=== PATIENT | female | born 1970 | race Native Hawaiian/Other Pacific Islander ===

== ENCOUNTER 2016-10-12 11:24 | Outpatient (CLI) | payer BC ==
--- NOTE | 2016-10-12 14:51 | Mammography Report ---
Bilateral mammogram: No previous studies are available. CAD study utilized. Findings: Predominance and interstitial bilaterally. Ill-defined 1 cm asymmetry posterior midline left breast. No microcalcification. Benign axillary nodes. Impression: Focal asymmetry left breast. Comparison with previous studies is recommended. If previous studies are not available spot mag and sonographic examination advised. BI-RADS CATEGORY: 0 = Needs additional imaging evaluation ACR BI-RADS MAMMOGRAPHIC CODES: 0 = Needs additional imaging evaluation; 1 = Negative; 2 = Benign; 3 = Probably benign; 4 = Suspicious; 5 = Malignant; 6 = Known biopsy-proven malignancy COMMENT: 1. Dense breast tissue, i.e., adenosis, fibrocystic changes, etc., may obscure an underlying neoplasm. 2. Approximately 10% of cancers are not detected with mammography. 3. A negative mammography report should not delay biopsy if a clinically suspicious mass is present. COMMENT: Patient follow-up letters are [facility].
== END 2016-10-12 11:25 | disposition home or self-care (01) ==
LOC: MAMMO 11:24
PROVIDERS: ATTEND Obstetrics & Gynecology
DX: Z12.31 Encounter for screening mammogram for malignant neoplasm of breast (principal)
CPT/HCPCS: 77067; G0202

== ENCOUNTER 2016-12-02 10:48 | Outpatient (CLI) | payer BC ==
--- NOTE | 2016-12-02 11:54 | Ultrasound Report ---
Spot compression magnification of circumscribed density outer left breast followed by sonographic examination: Findings: There is partially effacement noted of the density on spot magnification view, however, though no distinct mass is identified, asymmetric density persists. No microcalcification. Sonographic examination reveals complex cyst measuring 0.4 x 0.4 x 0.4 cm at 12:00 position 6 cm from nipple and a second complex cyst measuring 0.7 x 0.4 x 0.9 cm 2:00 position 4 cm from nipple. Impression: Complex cysts appear to be corresponding to the density seen on mammogram. Probably benign. Six-month followup with mammogram and sonogram recommended. BI-RADS CATEGORY: 3 = Probably benign ACR BI-RADS MAMMOGRAPHIC CODES: 0 = Needs additional imaging evaluation; 1 = Negative; 2 = Benign; 3 = Probably benign; 4 = Suspicious; 5 = Malignant; 6 = Known biopsy-proven malignancy COMMENT: 1. Dense breast tissue, i.e., adenosis, fibrocystic changes, etc., may obscure an underlying neoplasm. 2. Approximately 10% of cancers are not detected with mammography. 3. A negative mammography report should not delay biopsy if a clinically suspicious mass is present.
== END 2016-12-02 10:49 | disposition home or self-care (01) ==
LOC: MAMMO 10:48
PROVIDERS: ATTEND Obstetrics & Gynecology
DX: N60.02 Solitary cyst of left breast (principal)
CPT/HCPCS: 76642; G0206

== ENCOUNTER 2018-04-11 06:14 | Day surgery (SDC) | payer BC ==
[~2018-04-11 06:14] MED LIST: LACTATED RINGERS 1,000 ML IV SCH; NACL 0.9% 1000 ML 1,000 ML IV SCH; NEURONTIN PO SCH; VANCOMYCIN/NS 1 GM/250 ML 1 GM/250 ML BAG IV NR; VERSED IV NR
[2018-04-11] MEDS ORDERED: NACL BACTERIOSTATIC INFILTRATI ONE (06:55)
[2018-04-11] MEDS ORDERED: DIPRIVAN 10 MG/ML IV ONE (07:11)
[2018-04-11] MEDS ORDERED: DECADRON ONE (07:12)
[2018-04-11] MEDS ORDERED: XYLOCAINE MPF 2% ONE (07:12)
[2018-04-11] MEDS ORDERED: DILAUDID ONE (07:12)
[2018-04-11] MEDS ORDERED: ZOFRAN ONE ×2 (07:12→09:49)
[2018-04-11] MEDS ORDERED: MARCAINE 0.5% INFILTRATI ONE ×2 (07:31→08:22)
[2018-04-11] MEDS ORDERED: XYLOCAINE 1%/ EPI 1:100,000 INFILTRATI ONE (07:31)
[2018-04-11] MEDS ORDERED: DILAUDID IV PRN (07:40)
--- NOTE | 2018-04-11 07:40 | Anesthesia Consultation ---
Anesthesia Consult and Med Hx Date of service: 04/11/18 - Airway Anesthetic Teeth Evaluation: Good ROM Head & Neck: Adequate Mental/Hyoid Distance: Adequate Mallampati Class: Class III Intubation Access Assessment: Possibly Difficult - Pulmonary Exam CTA: Yes - Cardiac Exam Cardiac Exam: RRR - Pre-Operative Health Status ASA Pre-Surgery Classification: ASA2 Proposed Anesthetic Plan: General, MAC - Pulmonary Hx Smoking: No Hx Asthma: No Hx Respiratory Symptoms: No Hx Sleep Apnea: No (CELY PRE SCREEN NEGATIVE) - Cardiovascular System Hx Hypertension: No Hx Heart Attack/AMI: No Hx Percutaneous Transluminal Coronary Angioplasty (PTCA): No - Central Nervous System Hx Seizures: No CVA: No - Gastrointestinal Hx Gastroesophageal Reflux Disease: No - Endocrine Hx Renal Disease: No Hx Liver Disease: No Hx Insulin Dependent Diabetes: No Hx Non-Insulin Dependent Diabetes: No Hx Thyroid Disease: No - Other Systems Hx Obesity: Yes - Additional Comments Anesthesia Medical History Comments: No hx anesthetic complications.
--- NOTE | 2018-04-11 07:40 | Anesthesia Day of Surgery ---
Anesthesia Day of Surgery - Day of Surgery Patient Examined: Yes Patient H&P Reviewed: Yes Patient is NPO: Yes
[2018-04-11] MEDS ORDERED: XYLOCAINE 1% 20 mL ONE (08:11)
[2018-04-11] MEDS ORDERED: XYLOCAINE 1% 20 mL INFILTRATI ONE (08:22)
[2018-04-11] MEDS ORDERED: NACL 0.9% IR ONE (08:23)
--- NOTE | 2018-04-11 09:04 | Short Stay Summary ---
Short Stay Documentation Date of service: 04/11/18 - History H&P: obtained from office - Allergies and Medications Current Medications: Allergies Penicillins Allergy (Unverified 10/12/16 11:25) Hives,SWELLING Sulfa (Sulfonamide Antibiotics) Allergy (Unverified 04/03/18 14:43) Anaphylaxis Home Medications Medication Instructions Recorded Confirmed Last Taken Type RX: No Known Home Medications [No 04/03/18 04/03/18 Unknown History Reported Home Medications] Active Medications Gabapentin (Neurontin) 600 mg PO PREOP SHEREEN Last Admin: 04/11/18 07:00 Dose: 600 mg Documented by: Hydromorphone HCl (Dilaudid) 0.5 mg IV Q10MIN PRN PRN Reason: Pain , Severe (7-10) Stop: 04/11/18 20:00 Sodium Chloride (Nacl 0.9% 1000 Ml) 1,000 mls @ 75 mls/hr IV DIRECT SHEREEN Vancomycin HCl (Vancomycin/Ns 1 Gm/250 Ml) 1 gm in 250 mls @ 166.667 mls/hr IV PREOP NR; Protocol Stop: 04/11/18 23:59 Last Admin: 04/11/18 07:40 Dose: 166.667 mls/hr Documented by: Lactated Ringer's (Lactated Ringers) 1,000 mls @ 100 mls/hr IV DIRECT SHEREEN Last Admin: 04/11/18 07:10 Dose: 100 mls/hr Documented by: Midazolam HCl (Versed) 2 mg IV PREOP NR Stop: 04/11/18 21:59 Last Admin: 04/11/18 07:20 Dose: 2 mg Documented by: - Physical exam General appearance: no acute distress Integumentary: no rash Lungs: Normal air movement Neurological: Normal speech - Brief post op/procedure progress note Date of procedure: 04/11/18 (Dictation:[id number]) Pre-op diagnosis: Left back mass Post-op diagnosis: same Procedure: Back Mass Excision Anesthesia: GETA Findings: [id number] lipomatous mass Surgeon: NIRAV SYED Estimated blood loss: minimal Pathology: list (back mass) Specimen disposition: to lab Condition: stable - Hospital course Hospital course: uneventful - Disposition Condition at discharge: Stable Disposition: DC-01 TO HOME OR SELFCARE Short Stay Discharge Plan Diet: regular Wound: open to air, keep clean and dry, other (apply ice pack to wound for 10- 15min; 4-5 times a day. May shower tomorrow. Pat dry wound.) Special Instructions: no heavy lifting Additional Instructions: WOUND -OPEN TO AIR, KEEP CLEAN AND DRY.APPLY ICE PACK TO WOUND 10-15 MINUTES;4- 5X A DAY. MAY SHOWER TOMORROW PAT. DRY. DO NOT RUB OR SCRUB THE INCISION SITE. NO TUB BATH. NO HEAVY LIFTING. FOLLOW SURGEON INSTRUCTION. CALL FOR F/U APPT. Follow up with: JEREMI MYERS MD [Primary Care Provider] - 7 Days NIRAV SYED MD [Staff Physician] - 14 Days Forms: Work/School Excuse Out Patient, [facility] Work/School Release Form Prescriptions: HYDROcodone/ACETAMINOPHEN [Hydrocodone-Acetamin 5-325 mg] 1 each PO Q6H PRN #30 tablet PRN Reason: Pain , Severe (7-10)
[2018-04-11] MEDS ORDERED: ZOFRAN IV ONE (10:00)
[2018-04-11 10:02] VITALS: BP 111/57
[2018-04-11] MEDS ORDERED: PHENERGAN PR PRN (10:19)
[2018-04-11] MEDS ORDERED: NORCO 5/325 PO PRN (10:30)
--- NOTE | 2018-04-11 13:40 | Operative Report ---
PREOPERATIVE DIAGNOSIS: Left back mass. POSTOPERATIVE DIAGNOSIS: Left back mass. PROCEDURE: Excision of back mass. ATTENDING PHYSICIAN: Julianne Marshall MD ANESTHESIA: General. ESTIMATED BLOOD LOSS: Minimal. FLUIDS: 50 mL. FINDINGS: A 4 x 8 x 12 cm lipomatous mass that had some mild attachment to the underlying fascia. A small amount of superficial fascia was excised with the mass. DRAINS: None. COMPLICATIONS: None. DISPOSITION: Stable, transferred to Recovery Room. INDICATIONS: This is a 47-year-old female who has had an enlarging painful back mass for quite a while, who presents to the office for evaluation for possible excision. Procedure, risks, benefits were explained to the patient. Risks included but were not limited to infection, bleeding, pain, injury to surrounding structures, possible need for further procedures in the future. The patient understood and consented. OPERATIVE NOTE: The patient was brought to the operating room and placed on the table in supine position. After adequate general anesthesia was established, the patient was placed in the right lateral decubitus position. All pressure points were padded. Axillary roll was placed. Antibiotics had been administered prior to the start of the case. SCDs were in place. Sterile prep and drape was done. A time-out was called. I began by closely examining the skin lines to try and place my incision along the lines of Jocelin. Once I done that, we made a sharp incision through the skin, thereafter, I used electrocautery to continue the dissection until I got to the lipomatous mass from there. I dissected the mass away from the surrounding tissue using a combination of blunt dissection and electrocautery. I was able to get around this irregular elongated mass without disruption of the mass itself. Once the mass was removed from the surrounding tissue, which again was a combination of blunt dissection and with electrocautery. I then oriented the specimen with a silk stitch. The single stitch was the superior border, the double stitch was the deep border. Specimen was passed off the field in a sterile condition. The wound had been packed as I was placing the orientation sutures. I then removed the packing and achieved hemostasis with electrocautery. I took extra time to make sure especially in the lateral aspect that was a bit deeper that we had good hemostasis. As a precaution, I laid Surgicel in the lateral aspect of the cavity as well as along the bed. I did not see any active drainage or bleeding. The embalmer assistant was in agreement. We then proceeded to inject a combination of 0.5% Marcaine and 1% lidocaine plain into the surrounding tissues. A total of 50 mL was used. I then closed the deep layer of skin with interrupted 3-0 Vicryl sutures. Skin was closed with a running 4-0 Monocryl subcuticular stitch. Skin was cleaned and dried and Dermabond was placed. The patient tolerated the procedure well. There were no complications. I spoke with the sister at the end of the case. JOB# [id number] PADMINI/BROWN CALDERÓN
--- NOTE | 2018-04-11 13:53 | Post Anesthesia Evaluation ---
- Post Anesthesia Evaluation Patient Participated: Yes Airway Patent: Yes Stable Respiratory Function: Yes Nausea/Vomiting: No Temp > 96.8F: Yes Pain Manageable: Yes Adequeate Hydration: Yes Anesthesia Complications: No
== END 2018-04-11 11:35 | disposition home or self-care (01) ==
LOC: OR 06:14
PROVIDERS: ATTEND Surgery
DX: D17.1 Benign lipomatous neoplasm of skin and subcutaneous tissue of trunk (principal); E66.9 Obesity, unspecified; Z68.33 Body mass index [BMI] 33.0-33.9, adult; Z79.899 Other long term (current) drug therapy; Z88.0 Allergy status to penicillin; Z88.2 Allergy status to sulfonamides; Z98.891 History of uterine scar from previous surgery; Z98.890 Other specified postprocedural states
CPT/HCPCS: 21931; 88307; J1100; J1170; J2250; J2405; J2704; J3370; J7120